=== PATIENT | male | born 1950 ===

== ENCOUNTER → 2017-07-01 | Outpatient (CLI) | payer BC | LOC: PLD → LAB SHORT | DX: D48.5 Neoplasm of uncertain behavior of skin (principal) | CPT/HCPCS: 88305 ==

== ENCOUNTER → 2018-02-24 | Outpatient (CLI) | payer BC | END | disposition home or self-care (01) | LOC: PLD 08:22 → LAB SHORT 08:22 | DX: C44.41 Basal cell carcinoma of skin of scalp and neck (principal) | CPT/HCPCS: 88305 ==

== ENCOUNTER 2022-01-28 16:57 | Emergency (ER) | payer OTHER ==
[~2022-01-28] VITALS: Ht 177.8 cm; Wt 108.9 kg
== END 2022-01-28 20:18 | disposition home or self-care (01) ==
LOC: ER 16:57
DX: M79.662 Pain in left lower leg (principal); W10.9XXA Fall (on) (from) unspecified stairs and steps, initial encounter; Z88.5 Allergy status to narcotic agent
CPT/HCPCS: 76882

== ENCOUNTER 2024-07-22 14:38 | Emergency (ER) | payer OTHER ==
[~2024-07-22] VITALS: Ht 177.8 cm; Wt 111.1 kg
[2024-07-22 15:02] VITALS: BP 134/98
[2024-07-22] MEDS ORDERED: IBUP800 PO (17:07)
[2024-07-22] MEDS ORDERED: HYDROCODONE-AC1 EA10 PO (17:07)
== END 2024-07-22 17:36 | disposition home or self-care (01) ==
LOC: ER 14:38
DX: S83.91XA Sprain of unspecified site of right knee, initial encounter (principal); S93.402A Sprain of unspecified ligament of left ankle, initial encounter; S63.502A Unspecified sprain of left wrist, initial encounter; Z88.5 Allergy status to narcotic agent; X50.0XXA Overexertion from strenuous movement or load, initial encounter
CPT/HCPCS: 29505; 73110; 73590; 73610; 99283-25